=== PATIENT | male | born 2000 | race Hispanic/Latino ===

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

== ENCOUNTER → 2022-09-26 | Outpatient (CLI) | payer OTHER ==
[2022-09-28 11:12] LABS: RUBEOLA (MEASLES) IGG >300.0 AU/mL (Immune >16.4)
[2022-09-30 22:08] LABS: MUMPS VIRUS IGM ANTIBODY <0.80 AU (0.00-0.79); RUBEOLA (MEASLES) IGM <0.91 ISR (0.00-0.90)
[2022-10-01 07:17] LABS: RUBELLA IGM ANTIBODY <20.0 AU/mL (0.0-19.9)
== END | disposition home or self-care (01) ==
LOC: LAB 15:12
PROVIDERS: ATTEND Nurse Practitioner Family
DX: Z13.220 Encounter for screening for lipoid disorders (principal); Z13.29 Encounter for screening for other suspected endocrine disorder; K11.20 Sialoadenitis, unspecified
CPT/HCPCS: 36415; 86735; 86762; 87283

== ENCOUNTER 2025-01-27 14:47 | Emergency (ER) | payer BC, OTHER ==
[~2025-01-27] VITALS: Ht 170.2 cm; Wt 88.5 kg
--- NOTE | 2025-01-27 15:46 | EKG ---
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
--- NOTE | 2025-01-27 15:54 | ERN ---
General Chief Complaint: Abdominal Pain Stated Complaint: ABDOMINAL PAIN Time Seen by MD: 14:53 Source: patient History of Present Illness Initial Comments Patient is a 25-year-old male coming in complaining of left upper quadrant pain. Patient states that the pain has been ongoing for a couple of days he states that he works out consistently takes workup. He has pain initially was in the left upper quadrant area he had attributes this is wearing a belt for working out. The moment evaluation he states the pain is improved. Allergies: Coded Allergies: No Known Drug Allergies (Verified Allergy, Unknown, 05/06/17) Home Meds No Active Prescriptions or Reported Meds Past Medical History Past Medical History: No Pertinent History Past Surgical History: Other Surgical History Other: RIGHT KNEE ROS Dictation CONSTITUTIONAL: No chills, no fever, no weakness, no diaphoresis, no malaise. HEAD/FACE: No signs of trauma. EENT: No eye pain, no blurred vision, no tearing, no double vision, no ear pain, no ear discharge, no nose pain, no nasal congestion, no throat pain, no throat swelling, no mouth pain. RESPIRATORY: No cough, no orthopnea, no SOB, no stridor, no wheezing. CARDIOVASCULAR: No chest pain, no edema, no palpitations, no syncope. GASTROINTESTINAL/ABDOMINAL: abdominal pain, no constipation, no diarrhea, no nausea, no vomiting. GENITOURINARY: No abnormal discharge, no dysuria, no frequent urination, no hematuria. No complaints of pain in the genitals. MUSCULOSKELETAL: No back pain, no gout, no joint pain, no joint swelling, no muscle pain, no muscle stiffness, no neck pain. INTEGUMENTARY: No change in color, no change in hair/nails, no dryness, no lesion, no lumps, no rash. NEUROLOGICAL/PSYCH: No anxiety, not depressed, no emotional problem, no headache, no numbness, no pre-existing deficit, no history of seizures, no tremors, no weakness. HEMATOLOGIC/LYMPHATIC: Not anemic, no history of blood clots, no apparent bleeding, no bruising, glands not swollen. All Systems Negative, Except as Noted. Physical Exam Physical Exam Dictation VITAL SIGNS: Reviewed. GENERAL APPEARANCE: Alert, oriented x3, no acute distress, obese. HEAD AND FACE: Non-traumatic. EYES: PERRL, pink conjunctivas, eyelid no trauma, anterior chamber clear. EARS: Pinnas intact and no signs of trauma or erythema. Ear canals clear and no discharge. TMs no erythema. NOSE: No discharge, no bleeding. OROPHARYNX: Mouth normal, teeth no caries, tongue pink. Pharynx clear, no erythema. Tonsils no exudates, no abscesses noted. Mucous membrane moist. NECK: Supple, non-tender, no thyromegaly, no masses, no JVD, no bruits. BREAST: Deferred. CHEST: No tenderness, no crepitus, no paradoxical movement, no retractions. LUNGS: Clear, well-ventilated, symmetric, no rales, no wheezing, no rhonchi, no stridor, good breath sounds bilaterally. HEART: Regular rate, regular rhythm, no murmur, no gallops. VASCULAR: No peripheral edema. ABDOMEN: Soft, positive bowel sounds, nondistended, no guarding, nontender, no rebound, no masses no hepatomegaly, no splenomegaly, no Escalona's sign, no hernias. RECTAL: Deferred. GENITAL: Deferred. NEUROLOGICAL: Normal speech, gross motor function intact, gross sensory function intact. MUSCULOSKELETAL: Neck nontender, full range of motion, back nontender, full range of motion. EXTREMITIES: Nontender, full range of motion. SKIN: Color pink, dry, no turgor, no rash, no lacerations, no abrasions, no contusions. LYMPHATICS: Deferred. Results Laboratory and Microbiology Lab and Micro Result Laboratory Tests Test 01/27/25 16:06 01/27/25 17:38 White Blood Count 3.6 K/uL (4.8-10.8) L Red Blood Count 4.00 MIL/uL (4.50-6.20) L Hemoglobin 12.5 g/dL (14.0-18.0) L Hematocrit 34.8 % (42-54) L Mean Corpuscular Volume 87.0 fL (79-99) Mean Corpuscular Hemoglobin 31.3 pg (27.0-33.0) Mean Corpuscular Hemoglobin Concent 35.9 g/dL (32.0-36.0) Red Cell Distribution Width 11.6 % (11.0-15.5) Platelet Count 117 K/uL (130-400) L Mean Platelet Volume 10.4 fL (7.5-10.5) Immature Granulocyte % (Auto) 0.3 % (0-1) Neutrophils (%) (Auto) 56.6 % (40.0-77.0) Lymphocytes (%) (Auto) 30.9 % (21.0-51.0) Monocytes (%) (Auto) 6.1 % (3.0-13.0) Eosinophils (%) (Auto) 5.3 % (0.0-8.0) Basophils (%) (Auto) 0.8 % (0.0-5.0) Neutrophils # (Auto) 2.0 K/uL (1.8-7.7) Lymphocytes # (Auto) 1.1 K/uL (1.0-4.8) Monocytes # (Auto) 0.2 K/uL (0.1-1.0) Eosinophils # (Auto) 0.19 K/uL (0.00-0.70) Basophils # (Auto) 0.03 K/uL (0.00-0.20) Absolute Immature Granulocyte (auto 0.01 K/uL (0-1) Nucleated Red Blood Cells 0.0 % (0.0-0.19) Sodium Level 139 mmol/L (136-145) Potassium Level 3.9 mmol/L (3.5-5.1) Chloride Level 106 mmol/L (101-111) Carbon Dioxide Level 26 mmol/L (21-32) Blood Urea Nitrogen 26 mg/dL (7-18) H Creatinine 0.7 mg/dL (0.5-1.3) Glomerular Filtration Rate Calc 133 mL/min (>90) Random Glucose 109 mg/dL (70-105) H Total Calcium 8.9 mg/dL (8.5-10.1) Total Bilirubin 0.5 mg/dL (0.2-1.0) Aspartate Amino Transf (AST/SGOT) 30 U/L (10-37) Alanine Aminotransferase (ALT/SGPT) 35 U/L (12-78) Alkaline Phosphatase 72 U/L (50-136) Total Creatine Kinase 126 U/L (21-232) Troponin I High Sensitivity 6 ng/L (4-75) Total Protein 6.7 g/dL (6.0-8.3) Albumin 3.7 g/dL (3.5-5.0) Lipase 23 U/L (16-77) Urine Color COLORLESS (YELLOW) Urine Appearance CLEAR (CLEAR) Urine pH 6.5 (5.0-8.0) Urine Specific [place] 1.006 (1.001-1.031) Urine Protein NEGATIVE mg/dL (NEGATIVE) Urine Glucose (UA) NEGATIVE mg/dL (NEGATIVE) Urine Ketones NEGATIVE mg/dL (NEGATIVE) Urine Occult Blood NEGATIVE (NEGATIVE) Urine Nitrate NEGATIVE (NEGATIVE) Urine Bilirubin NEGATIVE mg/dL (NEGATIVE) Urine Urobilinogen 0.2 mg/dL (0.2-1.0) Urine Leukocyte Esterase NEGATIVE Yareli/uL Urine Opiates Screen NEGATIVE (NEGATIVE) Urine Barbiturates Screen NEGATIVE (NEGATIVE) Urine Phencyclidine Screen NEGATIVE (NEGATIVE) Urine Amphetamines Screen NEGATIVE (NEGATIVE) Urine Benzodiazepines Screen NEGATIVE (NEGATIVE) Urine Cocaine Screen NEGATIVE (NEGATIVE) Urine Marijuana (THC) Screen NEGATIVE (NEGATIVE) Labs Reviewed?: Yes EKG/XRAY/US/CT/MRI EKG Comment 04/2025 time 3:42 p.m. Ventricular rate 45 Sinus bradycardia [place] [address] wave elevation or depression CT Scan Comment REASON: [facility] pain ORDERING PHYSICIAN: RADHA OLIVARES MD PROCEDURE: ABD PEL WO - CT ABDOMEN/PELVIS W/O CONTRAST EXAM: CT Abdomen and Pelvis Without IV contrast CLINICAL HISTORY: abd pain TECHNIQUE: Axial computed tomography images of the abdomen and pelvis without intravenous contrast. CONTRAST: No IV contrast. COMPARISON: None provided. FINDINGS: LUNG BASES: The lung bases appear clear. No pleural effusions are seen. LIVER: Unremarkable. GALLBLADDER AND BILE DUCTS: The gallbladder appears within normal limits. No radioopaque gallstones are seen. No biliary ductal dilatation is evident. PANCREAS: Unremarkable. SPLEEN: Unremarkable. ADRENAL GLANDS: Unremarkable. KIDNEYS, URETERS, AND BLADDER: The kidneys appear within normal limits. There is no hydronephrosis or hydroureter. No urinary calculi are seen. STOMACH AND BOWEL: Unremarkable appearance of the stomach and bowel. No evidence of bowel obstruction. No evidence suggesting enteritis or colitis. Constipation. APPENDIX: No evidence of acute appendicitis on CT examination. PERITONEUM: No free fluid. No free air. LYMPH NODES: No lymphadenopathy is evident. REPRODUCTIVE: Unremarkable as visualized. VASCULATURE: No evidence of abdominal aortic aneurysm. BONES: No aggressive appearing osseous lesion. No acute osseous pathology evident. IMPRESSION: No acute intra-abdominal or pelvic abnormality. Constipation. /[facility] MDM: Differential diagnosis: Gastritis, esophagitis, constipation, appendicitis, colitis Rationale: Tests considered and ordered secondary to shared decision making include: Previous outside records reviewed: Old ER visits. Risk of complication and/or morbidity or mortality of patient management: None Medications-Per medication reconciliation Need for hospitalization: Patient does not meet criteria for hospitalization. Need for emergency major/minor surgery: No There are no social concerns with this patient. Prescription drug management Prescriptions will include symptomatic care Patient's prior external medical records from other ER visits were reviewed by me as indicated. Prior testing and results from previous visits were reviewed. Prior tests were taken into account with medical decision making and resource utilization, independent historian/historians were used to obtain complete medical history. I independently interpreted the test that were performed, results were reviewed by me and considered findings on radiology if ordered. Medical management and examination interpretation discussions were had by me with other qualified healthcare professionals as indicated for the patient's care. ED Course Orders Procedure Category Date Status Time Cbc With Differential LAB 01/27/25 Complete 15:27 Comprehensive LAB 01/27/25 Complete Metabolic Panel 15:27 Troponin I High LAB 01/27/25 Complete Sensitivity 15:27 Urinalysis Profile LAB 01/27/25 Complete 15:27 12 Lead Ekg Tracing- EKG 01/27/25 Complete Technical 15:27 Lactated Ringers PHA 01/27/25 Complete 1000ml (Lactated 15:30 Creatine Kinase, Total LAB 01/27/25 Complete 15:27 Lipase LAB 01/27/25 Complete 15:27 Lidocaine Hcl 2% PHA 01/27/25 Complete Viscous (Lidocaine Hcl 16:00 Mag/Alum/Simeth 30ml PHA 01/27/25 Complete (Maalox Plus 30ml) 16:00 Pantoprazole 40mg Inj PHA 01/27/25 Complete (Protonix 40mg Inj 16:00 Drug Screen Urine LAB 01/27/25 Complete 16:33 Ct Abdomen/Pelvis W/O CT 01/27/25 Resulted Contrast 18:07 Current Medications Medications (Trade) Dose Ordered Sig/Ever Route PRN Reason Start Time Stop Time Status Last Admin Dose Admin Al Hydroxide/Mg Hydroxide (MAALox PLUS 30ML) 30 ml ONCE ONCE PO 01/27/25 16:00 01/27/25 16:01 DC 01/27/25 16:07 Lactated Ringer's 1,000 ml @ 0 mls/hr ONCE ONCE IV 01/27/25 15:30 01/27/25 15:35 DC 01/27/25 16:07 Lidocaine HCl (Lidocaine HCl 2% Viscous) 10 ml ONCE ONCE PO 01/27/25 16:00 01/27/25 16:01 DC 01/27/25 16:06 Pantoprazole Sodium (PROTonix 40MG INJ) 40 mg ONCE ONCE IVP 01/27/25 16:00 01/27/25 16:01 DC 01/27/25 16:07 Vital Signs Date Time Temp Pulse Resp B/P (MAP) Pulse Ox O2 Delivery O2 Flow Rate FiO2 01/27/25 18:30 97.2 51 16 103/51 98 Room Air* 0 21 01/27/25 16:30 97.2 50 16 110/50 99 Room Air* 0 21 01/27/25 15:30 47 16 116/54 99 Room Air* 0 21 01/27/25 14:48 97.2 56 20 127/82 99 Room Air 0 7:00 p.m. patient was signed out to me by a.m. physician. 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 No nausea vomitings diarrhea hematemesis or melena he ate breakfast this morning and has had bowel movements daily. He is on a high-protein diet and also takes supplements. CT scan of the abdomen and pelvis was requested which is pending I reviewed the labs CBC showed a white count of 3.6 hemoglobin of 12.5 platelets 117 BUN and creatinine are 26 and 0.7 UDS negative 8:[address] scan of the abdomen and pelvis has been resulted-no evidence of any acute intra-abdominal pathology noted. Evidence of constipation seen I updated the patient and mother on available information and CT scan results. Patient responded to GI cocktail I updated him on mild thrombocytopenia and leukopenia and he indicated that he does take 800 mg of ibuprofen as he has been working out excessively. Recommended [id number] cathartics and laxatives. Also recommended to follow up with with primary care physician for a repeat CBC DX & DISP Disposition: Discharge Departure Impression: Primary Impression: Abdominal pain Additional Impression: Constipation Condition: Stable Scripts No Active Prescriptions or Reported Meds Additional Instructions: Patient and the caregiver have been informed of all the diagnostic tests and the imaging conducted during the today's visit to the emergency room and has verbalized understanding of the results I have personally reviewed and interpreted all diagnostic exams performed here in the ER today as well as the vital signs documented by the nursing staff. The patient is now being discharged to home and should follow up with the primary care physician or the specialist as directed by the ER staff. Follow-up with primary care provider in 1 to 2 days. Take medications as directed here in the emergency room. Okay to continue home medications unless otherwise discussed during your visit in the emergency room today. Return to your nearest emergency room if symptoms worsen or if there is no improvement. Call 911 if you need immediate assistance. Take Tylenol or Motrin [id number] as needed and if no contraindications are present. Increase oral hydration. A wound culture or urine culture was ordered here in the emergency room department please follow-up with primary care provider and advise them to get repeat ports from our facility. If you had any Antoine wrap/splints that were applied here, please do not remove them until you see your primary care or specialty. I have counseled him and his mother was present regarding over use of Motrin as he has mild thrombocytopenia. Referrals: JIMMY GARNETT (PCP) RADHA OLIVARES MD Jan 27, 2025 15:53 SERGIO GUTIERREZ MD Jan 27, 2025 20:16
[2025-01-27] MEDS: LIDOCAINE HCL 2% VISCOUS 15 ML UDCUP PO ONE (16:06)
[2025-01-27] MEDS: LACTATED RINGERS 1000ML 1,000 ML IV ONE (16:07)
[2025-01-27] MEDS: MAG/ALUM/SIMETH 30 ML UDCUP PO ONE (16:07)
[2025-01-27 16:28] LABS: IMMATURE GRANULOCYTE ABSOLUTE 0.01 K/uL (0-1); NUCLEATED RED BLOOD CELLS 0.0 % (0.0-0.19); PLATELET COUNT (AUTO) 117 K/uL (130-400); RED BLOOD CELL COUNT(AUTO) 4.00 MIL/uL (4.50-6.20); RED CELL DISTRIBUTION WIDTH 11.6 % (11.0-15.5); WHITE BLOOD COUNT (AUTO) 3.6 K/uL (4.8-10.8)
[2025-01-27 16:40] LABS: CREATININE 0.7 mg/dL (0.5-1.3); GLOMERULAR FILTR. RATE CALC 133.0 mL/min (>90); GLUCOSE,RANDOM 109.0 mg/dL (70-105); SODIUM SERUM 139.0 mmol/L (136-145); UREA NITROGEN, BLOOD 26.0 mg/dL (7-18)
[2025-01-27 16:44] LABS: ASPARTATE AMINOTRANSFERASE 30.0 U/L (10-37); CREATINE KINASE, TOTAL 126.0 U/L (21-232); TOTAL PROTEIN, SERUM 6.7 g/dL (6.0-8.3)
[2025-01-27 17:46] LABS: APPEARANCE,URINE CLEAR (CLEAR); GLUCOSE, URINE (UA) NEGATIVE (NEGATIVE); LEUKOCYTE ESTERASE ,URINE NEGATIVE Leu/uL (NEGATIVE); NITRATE,URINE NEGATIVE (NEGATIVE); OCCULT BLOOD,URINE NEGATIVE (NEGATIVE)
[2025-01-27 17:47] LABS: ADD UA MICROSCOPIC NO
[2025-01-27 17:52] LABS: AMPHET/METH SCREEN,URINE NEGATIVE (NEGATIVE); BARBITURATE SCREEN, URINE NEGATIVE (NEGATIVE); CANNABINOID SCREEN,URINE NEGATIVE (NEGATIVE); COCAINE SCREEN,URINE NEGATIVE (NEGATIVE)
--- NOTE | 2025-01-27 19:35 | HMCIMG ---
EXAM: CT Abdomen and Pelvis Without IV contrast CLINICAL HISTORY: abd pain TECHNIQUE: Axial computed tomography images of the abdomen and pelvis without intravenous contrast. CONTRAST: No IV contrast. COMPARISON: None provided. FINDINGS: LUNG BASES: The lung bases appear clear. No pleural effusions are seen. LIVER: Unremarkable. GALLBLADDER AND BILE DUCTS: The gallbladder appears within normal limits. No radioopaque gallstones are seen. No biliary ductal dilatation is evident. PANCREAS: Unremarkable. SPLEEN: Unremarkable. ADRENAL GLANDS: Unremarkable. KIDNEYS, URETERS, AND BLADDER: The kidneys appear within normal limits. There is no hydronephrosis or hydroureter. No urinary calculi are seen. STOMACH AND BOWEL: Unremarkable appearance of the stomach and bowel. No evidence of bowel obstruction. No evidence suggesting enteritis or colitis. Constipation. APPENDIX: No evidence of acute appendicitis on CT examination. PERITONEUM: No free fluid. No free air. LYMPH NODES: No lymphadenopathy is evident. REPRODUCTIVE: Unremarkable as visualized. VASCULATURE: No evidence of abdominal aortic aneurysm. BONES: No aggressive appearing osseous lesion. No acute osseous pathology evident. IMPRESSION: No acute intra-abdominal or pelvic abnormality. Constipation. /[place]
[2025-01-27 20:18] VITALS: BP 106/51; PULSE 50; RESP 16; TEMP 97.2; O2SAT 98
== END 2025-01-27 20:25 | disposition home or self-care (01) ==
LOC: EDH 14:47
DX: K59.00 Constipation, unspecified (principal); R10.12 Left upper quadrant pain
CPT/HCPCS: 99284; 74176; 96374; 96361; 82550; 84484; 80053; 80305; 83690; 85025; 36415; 93005; 81003; J7120; J2470